=== PATIENT | male | born 1980 ===

== ENCOUNTER 2019-03-01 06:38 | Day surgery (SDC) | payer OTHER ==
[2019-03-01] MEDS: LACTATED RINGER'S 1,000 ML IV (09:12)
[2019-03-01] MEDS ORDERED: MIDAZOLAM 1 MG/ML 2 ML INJ (13:14)
[2019-03-01] MEDS ORDERED: DEXAMETHASONE 4 MG/ML 5 ML INJ (13:25)
[2019-03-01] MEDS ORDERED: CEFAZOLIN 1 GM INJ ×2 (13:25→14:06)
[2019-03-01] MEDS: COCAINE 4% 4 ML TOP (13:38)
[2019-03-01] MEDS: NEOMYC/POLYMYX/BACIT 30 GM OINT (13:39)
[2019-03-01] MEDS: LIDOCAINE 1%/EPI (1:100,000) (MDV) 20 ML (13:39)
[2019-03-01] MEDS ORDERED: PROPOFOL 20 ML (13:58)
[2019-03-01] MEDS ORDERED: LIDOCAINE 2% (SDV) 5 ML INJ (13:58)
[2019-03-01] MEDS ORDERED: ROCURONIUM 50 MG INJ (13:58)
[2019-03-01] MEDS ORDERED: GLYCOPYRROLATE 0.4 MG INJ (13:58)
[2019-03-01] MEDS ORDERED: NEOSTIGMINE 3 MG/3 ML SYRINGE (13:58)
[2019-03-01] MEDS ORDERED: ONDANSETRON 4 MG INJ (13:59)
[2019-03-01] MEDS ORDERED: MEPERIDINE 25 MG INJ IV (14:30)
[2019-03-01] MEDS ORDERED: DIPHENHYDRAMINE 50 MG INJ IV (14:30)
[2019-03-01] MEDS ORDERED: FENTAnyl 50 MCG/ML VIAL IV (14:30)
[2019-03-01] MEDS ORDERED: HYDROmorphONE 1 MG/5 ML IV SYRINGE IV (14:30)
[2019-03-01] MEDS: ONDANSETRON 4 MG INJ IV (14:41)
[2019-03-01] MEDS: HYDROmorphONE 1 MG/5 ML IV SYRINGE IV ×2 (14:42→14:50)
== END 2019-03-01 16:49 | disposition home or self-care (01) ==
LOC: SDS 06:38
DX: J34.2 Deviated nasal septum (principal); J34.3 Hypertrophy of nasal turbinates
CPT/HCPCS: 30140; 88300